=== PATIENT | female | born 1960 | race Caucasian/White ===

== ENCOUNTER 2017-11-20 21:46 | Inpatient (IN) | payer MEDICARE ==
[2017-11-20] MEDS ORDERED: Morphine 4 MG/ML Carpuject ONE (22:11)
--- NOTE | 2017-11-20 22:31 | RAD ---
CHEST ONE VIEW 11/20/17 HISTORY: Trauma. COMPARISON: None. FINDINGS: Thoracostomy tube is in place. No pneumothorax. Multiple right sided rib fractures. There is air spac e opacity in the left upper lobe. IMPRESSION: 1. Right sided thoracostomy tube without pneumothorax. 2. Left upper lobe air space opacity. 3. Multiple right sided rib fractures. Although there are no comparisons available for review, this patient likely has comparisons that are not showing up in her jacket. POS: [facility]
--- NOTE | 2017-11-20 22:40 | PDOC.GSCN ---
Surgery Consult: HPI - Consult details Date: 11/20/17 Time: 15:15 Reason for consult: chest tube History of present illness: The patient presents after fall. She has multiple right sided rib fx's and right pneumothorax. She had chest tube placed in [place]. Surgery Consult: Exam - Physical Exam General: no distress Eye: PERRL Respiratory: other (breath sounds present bilateral, chest tube in place without air leak right chest) Abdomen: non tender, soft Surgery Consult: Meds - Allergies Allergies/Adverse Reactions: Allergies Allergy/AdvReac Type Severity Reaction Status Date / Time No Known Allergies Allergy Verified 11/21/17 00:20 Surgery Consult: Results - Labs Result Diagrams: 12/02/17 04:33 12/02/17 04:33 - Radiology Interpretation Chest x-ray Status: image reviewed by me (no residual ptx, CT in good position) Surgery Consult: A/P - Problem (1) Pneumothorax Current Visit: Yes Code(s): J93.9 - PNEUMOTHORAX, UNSPECIFIED Status: Acute Assessment and Plan: CT in place, admit to CCU, IMCU. Pain control. See Lamberto Rivera H&P for details. (2) Lung cancer Current Visit: Yes Code(s): C34.90 - MALIGNANT NEOPLASM OF UNSP PART OF UNSP BRONCHUS OR LUNG Status: Acute
[2017-11-20] MEDS ORDERED: Ketorolac Tromethamine 30 MG/ML VIAL ONE (23:01)
[2017-11-20] MEDS ORDERED: Acetaminophen 500 MG TAB PO SCH (23:59)
[2017-11-20] MEDS ORDERED: traMADol HCl 50 MG TAB PO SCH (23:59)
[2017-11-21] MEDS ORDERED: Dextrose 50% Abboject 50 ML SYRINGE SLOW IVP PRN ×2 (00:02)
[2017-11-21] MEDS ORDERED: hydrALAZINE 20 MG/ML VIAL SLOW IVP PRN (00:02)
[2017-11-21] MEDS ORDERED: Ondansetron HCl/PF 4 MG/2 ML Vial IVP PRN (00:02)
[2017-11-21] MEDS ORDERED: Promethazine HCl 25 MG/ML VIAL IM PRN (00:02)
[2017-11-21] MEDS ORDERED: Dextrose 5% in Water 1,000 ML IV PRN (00:02)
[2017-11-21] MEDS: Ketorolac Tromethamine 30 MG/ML VIAL IVP SCH ×5 (00:36→23:21)
[2017-11-21] MEDS ORDERED: traMADol HCl 50 MG TAB PO SCH (00:45)
[2017-11-21] MEDS ORDERED: Acetaminophen 500 MG TAB PO SCH (00:45)
[2017-11-21] MEDS: Piperacillin/Tazobactam 3.375 GM in Sodium Chloride 0.9% 100 ML IVPB SCH ×4 (01:33→23:09)
[2017-11-21] MEDS: Morphine 4 MG/ML VIAL SLOW IVP PRN ×2 (03:50→08:07)
[2017-11-21 04:08] LABS: #Eosinphils 0.1 thou/uL (0.0-0.7); #Lymphocytes 0.8 thou/uL (1.20-3.40); #Monocytes 1.1 thou/uL (0.11-0.59); #Neutrophils 13.3 thou/uL (1.40-6.50); %Basophils 0.1 % (0.0-1.0); %Eosinophils 0.5 % (0.0-10.0); %Lymphocytes 5.5 % (21.0-51.0); %Monocytes 7.1 % (0.0-10.0); %Neutrophils 86.8 % (42.0-75.0); Mean Corpuscular HGB CONC 31.4 g/dL (32.0-36.0); Mean Corpuscular Hemoglobin 28.7 pg (27.0-31.0); Mean Corpuscular Volume 91.4 fl (81.0-99.0); Mean Platelet Volume 5.8 fL (7.4-10.4); Platelet Count 567 thou/uL (130-400); RBC Distribution Width 15.1 % (11.5-14.5); Red Blood Cell (RBC) Count 3.13 mill/uL (4.20-5.40); White Blood Cell (WBC) Count 15.3 thou/uL (4.8-10.8)
[2017-11-21 04:27] LABS: Anion Gap 15 mmol/L (10-20); BUN (Urea Nitrogen) 11 mg/dL (9.8-20.1); Calc. Creatinine Clearance 119 mL/min (70-130); Calcium 9.3 mg/dL (7.8-10.44); Carbon Dioxide 26 mmol/L (22-29); Chloride 100 mmol/L (98-107); Estimated GFR-MDRD Greater than 90; Glucose 152 mg/dL (70-105); Magnesium 1.5 mg/dL (1.6-2.6); Phosphorus 3.8 mg/dL (2.3-4.7); Potassium 3.8 mmol/L (3.5-5.1); Sodium 137 mmol/L (136-145)
[2017-11-21] MEDS ORDERED: Potassium Chloride 40 MEQ in Premix Bag 1 BAG IVPB SCH (04:30)
[2017-11-21] MEDS ORDERED: Potassium Chloride 20 MEQ in Sodium Chloride 0.9% 250 ML 250 ML IVPB SCH (05:00)
[2017-11-21] MEDS ORDERED: Magnesium Sulfate 4 GM in Sodium Chloride 0.9% 250 ML 250 ML IVPB SCH (05:00)
[2017-11-21] MEDS: Acetaminophen 500 MG TAB PO SCH ×4 (05:10→23:22)
[2017-11-21] MEDS: traMADol HCl 50 MG TAB PO SCH ×4 (05:10→23:22)
[2017-11-21] MEDS: HumaLOG 300 UNITS/3 ML VIAL SC PRN ×3 (06:17→17:40)
[2017-11-21] MEDS: Sucralfate 1 GM TAB PO SCH ×4 (07:30→23:10)
--- NOTE | 2017-11-21 08:03 | HP ---
Lamberto Rivera PA-C, dictating for Kelvin Sibley M.D. DATE OF ADMISSION: 11/20/2017 ATTENDING PHYSICIAN: Dr. Sibley. CHIEF COMPLAINT: Transferred from [place] for evaluation, for multiple rib fractures. HISTORY OF PRESENT ILLNESS: This is a 57-year-old female who presents to the ED via transfer from [facility] status post fall with injuries to her right side. Per her daughter, patient has fa llen about 3 times this week and had not fallen until her physician placed the patient on a blood pre ssure medication, metoprolol. Patient agrees with that statement as well. The fallen has been start ed since starting this medication. This fall in particular, she got up and then had stumbled and the n fell directly onto her right side causing a direct pain and mild shortness of breath. The patient does receive radiation and chemo for brain and lung cancer. She is currently being treated [facility]. Patient at this time just complains of pain on the right side of the ribs and no other p ain anywhere else at this time. PAST MEDICAL HISTORY: Includes hypertension, she has had heart attack in the past, lung cancer, radha gnant neoplasm of the brain, radiation therapy. She is on home O2, surgical histories includes bladd er suspension, and cholecystectomy. ALLERGIES: No known drug allergies. Obviously she does have some sensitivity to metoprolol. CURRENT MEDICATIONS: Aspirin, atorvastatin, bupropion, dexamethasone, furosemide, glimepiride, Lantu s, Novolin, Combivent, Imdur, Lamictal, Keppra, lisinopril, metformin, metoprolol, Protonix and Caraf ate. SOCIAL HISTORY: No tobacco, alcohol, or drug use. PHYSICAL EXAMINATION: VITAL SIGNS: Blood pressure 173/74, heart rate 94, respiratory 26, temperature 98.5, pain 8/10, 99% on nonrebreather. At this time, she is on 4 liters of nasal cannula, satting at 92%. HEENT: Head is atraumatic, normocephalic. GENERAL: She is in no apparent distress at this time. Conversing in full sentences. NECK: No JVD, no masses. No cervical spine tenderness. LUNGS: She has chest tenderness to the right side with a chest tube in place. Lung sounds are clear on the right. Somewhat progress on the left. CARDIOVASCULAR: S1, S2, regular rate and rhythm. ABDOMEN: Soft, nontender, nondistended. Pelvis is intact. BACK: Unremarkable upper and lower extremities. Ne edema. Positive pulses bilaterally and moving w ithout difficulty. NEUROLOGIC: GCS of 15. SKIN: Warm and dry. LABORATORY DATA: Sodium 131, potassium 4.1, chloride 197, bicarbonate 24, BUN 11, creatinine 0.5, gl ucose 198. CBC: White count 17.2, hemoglobin 9.3, hematocrit 28.3, platelet count 596. PT 16.3, INR 1.5. RADIOLOGY: CT of the head, chest was done at [place], which showed multiple rib fractures on CT o f chest with moderate pneumothorax. CT of the head showed redemonstration of malignant tumor and no intracranial hemorrhage. ASSESSMENT AND PLAN: 1. Status post fall. Multiple rib fractures 3 through 8 on the right pneumothorax. 2. Current treatment of lung and brain cancer. Plan will be admitted to CCU for overnight observation. Continue with respiratory therapy. Home med ications has been also be restarted, reconcile those, started on clear liquid diet and advance as julienne erated. Continue chest tube management on suction. Chest x-ray in the morning. We will institute r ib fracture protocol. We also discussed possibly getting oncology on board if her stay is longer ivis t runs into her concurrent radiation treatment next week. We will initiate DVT and gastrointestinal prophylaxis when appropriate. The patient has been seen by Dr. Sibley at bedside and agrees with th jaja above plan.
--- NOTE | 2017-11-21 08:09 | PDOC.GSPN ---
Surgery Progress Note: Subj - Subjective Narrative: Pain better this am, no dysnea Surgery Progress Note: Obj - Vital signs Vital signs: Vital Signs - Most Recent Temp Pulse Resp BP Pulse Ox 98.8 F 84 21 H 98 11/21/17 03:00 11/21/17 07:12 11/21/17 07:12 11/21/17 07:16 - Physical Exam General: no distress Respiratory: clear to auscultation Abdomen: non tender Surgery Progress Note: Results - Labs Result Diagrams: 11/21/17 03:54 11/21/17 03:54 Lab results: Laboratory Results WBC 15.3 thou/uL (4.8-10.8) H 11/21/17 03:54 RBC 3.13 mill/uL (4.20-5.40) L 11/21/17 03:54 Hgb 9.0 g/dL (12.0-16.0) L 11/21/17 03:54 Hct 28.6 % (36.0-47.0) L 11/21/17 03:54 MCV 91.4 fl (81.0-99.0) 11/21/17 03:54 MCH 28.7 pg (27.0-31.0) 11/21/17 03:54 MCHC 31.4 g/dL (32.0-36.0) L 11/21/17 03:54 RDW 15.1 % (11.5-14.5) H 11/21/17 03:54 Plt Count 567 thou/uL (130-400) H 11/21/17 03:54 MPV 5.8 fL (7.4-10.4) L 11/21/17 03:54 Neutrophils % 86.8 % (42.0-75.0) H 11/21/17 03:54 Lymphocytes % 5.5 % (21.0-51.0) L 11/21/17 03:54 Monocytes % 7.1 % (0.0-10.0) 11/21/17 03:54 Eosinophils % 0.5 % (0.0-10.0) 11/21/17 03:54 Basophils % 0.1 % (0.0-1.0) 11/21/17 03:54 Neutrophils # 13.3 thou/uL (1.40-6.50) H 11/21/17 03:54 Lymphocytes # 0.8 thou/uL (1.20-3.40) L 11/21/17 03:54 Monocytes # 1.1 thou/uL (0.11-0.59) H 11/21/17 03:54 Eosinophils # 0.1 thou/uL (0.0-0.7) 11/21/17 03:54 Basophils # 0.0 thou/uL (0.0-0.2) 11/21/17 03:54 Sodium 137 mmol/L (136-145) 11/21/17 03:54 Potassium 3.8 mmol/L (3.5-5.1) 11/21/17 03:54 Chloride 100 mmol/L (98-107) 11/21/17 03:54 Carbon Dioxide 26 mmol/L (22-29) 11/21/17 03:54 Anion Gap 15 mmol/L (10-20) 11/21/17 03:54 BUN 11 mg/dL (9.8-20.1) 11/21/17 03:54 Creatinine 0.62 mg/dL (0.6-1.1) 11/21/17 03:54 Estimated GFR (MDRD) Greater than 90 11/21/17 03:54 Glucose 152 mg/dL (70-105) H 11/21/17 03:54 POC Glucose 158 mg/dL (70-110) H 11/21/17 06:17 Calcium 9.3 mg/dL (7.8-10.44) 11/21/17 03:54 Phosphorus 3.8 mg/dL (2.3-4.7) 11/21/17 03:54 Magnesium 1.5 mg/dL (1.6-2.6) L 11/21/17 03:54 - Radiology Interpretation Chest x-ray Status: image reviewed by me (no residual ptx, CT in good position) Surgery Progress Note: A/P - Problem (1) Pneumothorax Current Visit: Yes Code(s): J93.9 - PNEUMOTHORAX, UNSPECIFIED Status: Acute Assessment and Plan: Ct to water seal per Dr. Cheema, continue pain control (2) Lung cancer Current Visit: Yes Code(s): C34.90 - MALIGNANT NEOPLASM OF UNSP PART OF UNSP BRONCHUS OR LUNG Status: Acute
[2017-11-21] MEDS: Dexamethasone 4 MG TAB PO SCH (08:11)
--- NOTE | 2017-11-21 08:24 | RAD ---
UPRIGHT PORTABLE CHEST 1 VIEW: Date: HISTORY: 57-year-old female with chest tube, follow-up, multiple right rib fractures secondary to trauma. FINDINGS: There are numerous minimally displaced right rib fractures. Right chest tube in place without pneumot horax. There is extensive interstitial and alveolar abnormal opacity in the left upper lobe, evidence for pneumonia, with some nodularity in the hilar regions raising concern for possibility of coexiste nt mass or adenopathy. IMPRESSION: No significant residual right-sided pneumothorax. Numerous displaced right rib fractures. Extensive a bnormal opacity in the left upper chest, which is stable, with some patchy parenchymal changes in the infrahilar regions, as well as some nodularity in the hilar regions as well. No significant change f rom 11/20/17. Continue short-term follow-up for clearing or stability. POS: [facility]
[2017-11-21] MEDS: levETIRAcetam 500 MG TAB PO SCH ×2 (08:48→23:10)
[2017-11-21] MEDS: Gabapentin 100 MG CAP PO SCH ×3 (08:48→23:11)
[2017-11-21] MEDS: buPROPion HCl 100 MG TAB PO SCH ×2 (08:49→23:10)
[2017-11-21] MEDS: lamoTRIgine 100 MG TAB PO SCH (08:49)
[2017-11-21] MEDS ORDERED: FLU VACC QS2017-18 36 mo. & older 0.5 ML SYRINGE IM ONE (09:00)
[2017-11-21] MEDS: Insulin Detemir 100 UNITS/ML 45 UNITS in Admixture Fee 1 EACH SC SCH (23:08)
[2017-11-21] MEDS: Atorvastatin Calcium 40 MG TAB PO SCH (23:10)
[2017-11-22] MEDS: Piperacillin/Tazobactam 3.375 GM in Sodium Chloride 0.9% 100 ML IVPB SCH ×4 (01:14→21:19)
[2017-11-22] MEDS: Morphine 4 MG/ML Carpuject SLOW IVP PRN ×2 (04:56→22:59)
[2017-11-22] MEDS: traMADol HCl 50 MG TAB PO SCH ×4 (04:58→22:58)
[2017-11-22] MEDS: Acetaminophen 500 MG TAB PO SCH ×4 (04:58→22:58)
[2017-11-22] MEDS: Ketorolac Tromethamine 30 MG/ML VIAL IVP SCH ×4 (04:59→22:57)
[2017-11-22] MEDS ORDERED: HYDROcodone/Acetaminophen 10/325 mg Tablet PO SCH (07:00)
[2017-11-22] MEDS: Sucralfate 1 GM TAB PO SCH ×4 (07:34→21:21)
[2017-11-22] MEDS: Dexamethasone 4 MG TAB PO SCH (07:35)
[2017-11-22] MEDS: buPROPion HCl 100 MG TAB PO SCH ×2 (09:10→21:21)
[2017-11-22] MEDS: lamoTRIgine 100 MG TAB PO SCH (09:11)
[2017-11-22] MEDS: Docusate 100 MG CAP PO SCH (09:11)
[2017-11-22] MEDS: Senokot 8.6 MG TAB PO SCH (09:11)
[2017-11-22] MEDS: Gabapentin 100 MG CAP PO SCH ×3 (09:11→21:21)
[2017-11-22] MEDS: levETIRAcetam 500 MG TAB PO SCH ×2 (09:11→21:21)
--- NOTE | 2017-11-22 10:32 | RAD ---
CHEST 1 VIEW: Date: 11/22/17 HISTORY: 57-year-old female with follow-up chest tube and flail chest. FINDINGS: Again noted are numerous displaced right rib fractures. Right chest tube in place without significant pneumothorax. Extensive alveolar and reticulonodular opacity in the left upper lobe with some associ ated volume loss, as well as some nodularity in the left hilum and right paratracheal region, and ivet e minimal increased markings in the infrahilar regions. Overall appearance is stable. IMPRESSION: Stable appearance of the chest. No evidence for right-sided acute pneumothorax. POS: [facility]
[2017-11-22] MEDS ORDERED: Ketorolac Tromethamine 60 MG/2 ML VIAL ONE (11:37)
[2017-11-22] MEDS ORDERED: Ketorolac Tromethamine 30 MG/ML VIAL IVP SCH (11:45)
[2017-11-22] MEDS: HumaLOG 300 UNITS/3 ML VIAL SC PRN ×3 (11:52→21:45)
--- NOTE | 2017-11-22 19:29 | PRG ---
DATE OF SERVICE: 11/22/2017 ATTENDING PHYSICIAN: Eddie Cheema, DO This is Sharron Palafox, nurse practitioner, dictating a daily progress note for Dr. Eddie Cheema. SUBJECTIVE: The patient is a 57-year-old female who was admitted one day ago after transfer from an outside facility status post fall with injuries to her right side. Multiple right-sided rib fractures were identified and a tube thoracostomy was placed. Chest tube was placed to water seal one day ago. There has been no residual pneumothorax. She was transferred out of the IMC unit and up to the surgical floor yesterday evening. She has remained stable. She states the pain is only partially controlled with current pain regimen. OBJECTIVE: VITAL SIGNS: Temperature 98 degrees Fahrenheit, pulse 93, respirations 16, O2 sat 92% on 2 liters, blood pressure 126/76. CONSTITUTIONAL: A 57-year-old female lying in bed, some obvious pain to the right rib area, in no acute distress. HEENT: Atraumatic, normocephalic. PULMONARY: Bilateral breath sounds clear. Chest tube in place to water seal right lateral. No air leak noted. CARDIOVASCULAR: Regular rate and rhythm. Heart sounds normal. ABDOMEN: Soft, nontender, nondistended. NEUROLOGIC: GCS of 15. Awake, alert, oriented x3. EXTREMITIES: Moves all extremities well. Cap refill brisk. Neurovascularly intact. ASSESSMENT: 1. Status post ground-level fall. 2. Multiple rib fractures 3 through 8 on the right side. 3. Right pneumothorax, resolved. 4. Status post tube thoracostomy placement. 5. Currently undergoing treatment for metastatic lung cancer. PLAN: 1. Adjust oral pain medication. We will add Toradol and continue hydrocodone. 2. Continue daily chest x-rays. 3. Encourage pulmonary toilet and incentive spirometry. 4. Continue Zosyn which was started prior to arrival for treatment of pneumonia. 5. Protonix for PUD prophylaxis. 6. SCDs for DVT prophylaxis. The patient was seen and examined with Dr. Cheema who agrees with the assessment and plan. MTDD
[2017-11-22] MEDS: Atorvastatin Calcium 40 MG TAB PO SCH (21:21)
[2017-11-22] MEDS: Insulin Detemir 100 UNITS/ML 45 UNITS in Admixture Fee 1 EACH SC SCH (21:22)
[2017-11-22] MEDS: Cyclobenzaprine 10 MG TAB PO PRN (23:06)
[2017-11-23] MEDS: Piperacillin/Tazobactam 3.375 GM in Sodium Chloride 0.9% 100 ML IVPB SCH ×4 (02:25→21:04)
[2017-11-23] MEDS: Morphine 4 MG/ML Carpuject SLOW IVP PRN (03:37)
[2017-11-23] MEDS: Acetaminophen 500 MG TAB PO SCH ×4 (05:40→23:27)
[2017-11-23] MEDS: traMADol HCl 50 MG TAB PO SCH ×4 (05:40→23:25)
[2017-11-23] MEDS: Ketorolac Tromethamine 30 MG/ML VIAL IVP SCH ×4 (05:41→23:28)
[2017-11-23] MEDS ORDERED: Glimepiride 4 MG TAB PO SCH (07:30)
--- NOTE | 2017-11-23 07:52 | RAD ---
CHEST 1 VIEW: HISTORY: Chest tube. Followup. COMPARISON: 11/22/17. FINDINGS: Cardiac silhouette is magnified by projection. Mass-like infiltrate at the left upper lobe is stable . Right thoracostomy tube remains in good radiographic position. Right rib fractures are again demo nstrated. No significant residual pneumothorax. Mediastinum remains midline. IMPRESSION: Stable posttraumatic appearance of the chest. POS: [facility]
[2017-11-23] MEDS: Docusate 100 MG CAP PO SCH (09:27)
[2017-11-23] MEDS: buPROPion HCl 100 MG TAB PO SCH ×2 (09:27→21:05)
[2017-11-23] MEDS: Gabapentin 100 MG CAP PO SCH ×3 (09:27→21:04)
[2017-11-23] MEDS: metFORMIN XR 500 MG TAB PO SCH ×2 (09:27→16:55)
[2017-11-23] MEDS: Sucralfate 1 GM TAB PO SCH ×4 (09:27→21:04)
[2017-11-23] MEDS: Dexamethasone 4 MG TAB PO SCH (09:27)
[2017-11-23] MEDS: Senokot 8.6 MG TAB PO SCH (09:28)
[2017-11-23] MEDS: Metoprolol Tartrate 25 MG TAB PO SCH ×2 (09:28→21:03)
[2017-11-23] MEDS: lamoTRIgine 100 MG TAB PO SCH (09:28)
[2017-11-23] MEDS: Cyclobenzaprine 10 MG TAB PO PRN ×2 (09:28→20:42)
[2017-11-23] MEDS: levETIRAcetam 500 MG TAB PO SCH ×2 (09:28→21:04)
[2017-11-23] MEDS: HumaLOG 300 UNITS/3 ML VIAL SC PRN ×3 (11:04→22:05)
--- NOTE | 2017-11-23 12:49 | PRG ---
DATE OF SERVICE: 11/23/2017 SUBJECTIVE: I am seeing Ms. Wharton today in the presence of trauma team and patient's nurse. The p atient reports adequate pain control. She denies any dyspnea, syncope, or abdominal pain. Chest tub e has been on water seal since yesterday. Chest x-ray today reveals no residual pneumothorax. OBJECTIVE: VITAL SIGNS: Today, includes blood pressure 117/72, pulse 95, respiratory rate is 18, temperature is 97.9 degrees Fahrenheit, oxygen saturation is 96% on 3 liters by nasal cannula oxygen. HEENT EXAMINATION: Reveals normocephalic and atraumatic. Pupils are equal, round, and reactive to l ight and accommodation. HEART: Reveals regular rate and rhythm, no murmurs or gallops auscultated. LUNGS: Reveal bilateral scattered rhonchi. Breathing regular and unlabored. ABDOMEN: Soft, nontender, and nondistended. Bowel sounds in all 4 quadrants appear normoactive. No te that the chest tube, which is on water seal reveals no air leaks. IMPRESSION: 1. Status post fall with right blunt chest trauma. 2. Resolved right pneumothorax. PLAN: Chest tube was removed without incident. Portable chest x-ray will be obtained tomorrow to ru le out any recurrent pneumothorax. Patient will be encouraged to ambulate and participate in activit ies per physical and occupational therapy. Anticipate discharge to rehab soon.
[2017-11-23] MEDS: Atorvastatin Calcium 40 MG TAB PO SCH (21:04)
[2017-11-23] MEDS ORDERED: Amiodarone In Dextrose 200 ML IVPB SCH (21:45)
[2017-11-23] MEDS ORDERED: Amiodarone HCl 150 MG in Dextrose 5% in Water 100 ML IVPB SCH (22:00)
[2017-11-23] MEDS ORDERED: Amiodarone HCl 450 MG, Admixture Fee 1 EACH in Dextrose 5% in Water 250 ML IVPB SCH (22:00)
[2017-11-23] MEDS: Insulin Detemir 100 UNITS/ML 20 UNITS in Pre-Filled Syringe 1 EACH SC SCH (22:04)
[2017-11-23 22:12] LABS: #Eosinphils 0.1 thou/uL (0.0-0.7); #Lymphocytes 0.7 thou/uL (1.20-3.40); #Monocytes 0.8 thou/uL (0.11-0.59); #Neutrophils 16.3 thou/uL (1.40-6.50); %Eosinophils 0.3 % (0.0-10.0); %Lymphocytes 3.8 % (21.0-51.0); %Monocytes 4.3 % (0.0-10.0); %Neutrophils 91.5 % (42.0-75.0); Mean Corpuscular HGB CONC 30.4 g/dL (32.0-36.0); Mean Corpuscular Hemoglobin 28.2 pg (27.0-31.0); Mean Corpuscular Volume 92.6 fl (81.0-99.0); Mean Platelet Volume 5.7 fL (7.4-10.4); Platelet Count 656 thou/uL (130-400); RBC Distribution Width 15.1 % (11.5-14.5); Red Blood Cell (RBC) Count 3.54 mill/uL (4.20-5.40); White Blood Cell (WBC) Count 17.8 thou/uL (4.8-10.8)
[2017-11-23 22:34] LABS: Anion Gap 14 mmol/L (10-20); BUN (Urea Nitrogen) 13 mg/dL (9.8-20.1); Calc. Creatinine Clearance 125 mL/min (70-130); Calcium 9.4 mg/dL (7.8-10.44); Carbon Dioxide 24 mmol/L (22-29); Chloride 103 mmol/L (98-107); Estimated GFR-MDRD Greater than 90; Glucose 233 mg/dL (70-105); Magnesium 1.5 mg/dL (1.6-2.6); Phosphorus 2.6 mg/dL (2.3-4.7); Potassium 4.6 mmol/L (3.5-5.1); Sodium 136 mmol/L (136-145)
[2017-11-23] MEDS ORDERED: Magnesium Sulfate 4 GM in Sodium Chloride 0.9% 250 ML 250 ML IVPB SCH (23:30)
--- NOTE | 2017-11-24 00:01 | PRG ---
DATE OF SERVICE: 11/23/2017 SUBJECTIVE: This is a 57-year-old female status post fall with multiple rib fractures and pneumothor ax on the right. She does have a history of extensive cancer of the lung, brain, and possible abdome n. Tonight, the patient did develop atrial fibrillation with RVR as noted on EKG and the patient den ied any chest pain. I think shortness of breath normally associated that she does have chronically. No headaches or dizziness at this time. OBJECTIVE: VITAL SIGNS: Heart rate of approximately 130, 115, and as low as 100 with atrial fibrillation RVR no nanci on the EKG. Blood pressure is 123/78, SpO2 was 95%, respiratory rate of approximately 18 and unl abored. Physical exam is unchanged from this a.m. Otherwise, chest dressing was clean, dry, and int act. Thoracostomy tube was removed early tonight. LABORATORY DATA: Stat labs were ordered. CBC: WBCs of 17.8, hemoglobin 10, hematocrit 32.8, platel et count 656. Chemistries showed sodium of 136, potassium 4.6, chloride 103, bicarbonate 24, BUN 13, creatinine 0.59, glucose 233, phosphorous 2.6, calcium 9.4, and a magnesium of 1.5. Chest x-ray was taken as well. No discrete pneumothorax noted by Radiology as well as unchanged appearance of left opacification. ASSESSMENT AND PLAN: The patient at this time will be then transferred to the telemetry unit for car diac monitoring as well as placed on an amiodarone drip per protocol, correct her abnormal electrolyt es, a.m. labs will be drawn as well as a repeat chest x-ray. The patient at this time is in no acute distress. Her pain is being treated adequately. Continue care as per a.m. progress note.
[2017-11-24] MEDS: Piperacillin/Tazobactam 3.375 GM in Sodium Chloride 0.9% 100 ML IVPB SCH ×4 (02:48→21:22)
[2017-11-24 05:24] LABS: #Eosinphils 0.3 thou/uL (0.0-0.7); #Lymphocytes 0.9 thou/uL (1.20-3.40); #Monocytes 0.9 thou/uL (0.11-0.59); #Neutrophils 13.8 thou/uL (1.40-6.50); %Lymphocytes 5.7 % (21.0-51.0); %Monocytes 5.8 % (0.0-10.0); %Neutrophils 86.4 % (42.0-75.0); Hemoglobin 9.4 g/dL (12.0-16.0); Mean Corpuscular HGB CONC 30.6 g/dL (32.0-36.0); Mean Corpuscular Hemoglobin 28.7 pg (27.0-31.0); Mean Corpuscular Volume 93.6 fl (81.0-99.0); Mean Platelet Volume 5.8 fL (7.4-10.4); Platelet Count 637 thou/uL (130-400); RBC Distribution Width 14.9 % (11.5-14.5); Red Blood Cell (RBC) Count 3.28 mill/uL (4.20-5.40); White Blood Cell (WBC) Count 15.9 thou/uL (4.8-10.8)
[2017-11-24] MEDS: traMADol HCl 50 MG TAB PO SCH ×4 (05:29→23:55)
[2017-11-24] MEDS: Acetaminophen 500 MG TAB PO SCH ×2 (05:29→11:01)
[2017-11-24] MEDS: Ketorolac Tromethamine 30 MG/ML VIAL IVP SCH ×3 (05:30→21:24)
[2017-11-24 05:44] LABS: Anion Gap 13 mmol/L (10-20); BUN (Urea Nitrogen) 14 mg/dL (9.8-20.1); Calc. Creatinine Clearance 153 mL/min (70-130); Calcium 8.9 mg/dL (7.8-10.44); Carbon Dioxide 25 mmol/L (22-29); Chloride 106 mmol/L (98-107); Estimated GFR-MDRD Greater than 90; Glucose 100 mg/dL (70-105); Magnesium 2.5 mg/dL (1.6-2.6); Phosphorus 2.7 mg/dL (2.3-4.7); Potassium 4.5 mmol/L (3.5-5.1); Sodium 139 mmol/L (136-145)
--- NOTE | 2017-11-24 07:28 | RAD ---
PORTABLE AP CHEST X-RAY: 11/23/2017 HISTORY: New-onset atrial fibrillation. COMPARISON: 11/23/2017 at 0619 hours. FINDINGS: The right-sided thoracostomy tube has been removed. No obvious pneumothorax is appreciated. Multipl e right-sided rib fractures are again noted. The mass-like parenchymal opacity in the left upper scar g zone is again seen and unchanged. There has been no other interval change. IMPRESSION: 1. Interval removal of the right-sided thoracostomy tube without evidence of pneumothorax. 2. Multiple right-sided rib fractures. 3. Stable mass-like opacity within the left mid and upper lung zone. POS: [facility]
[2017-11-24] MEDS: Sucralfate 1 GM TAB PO SCH ×2 (08:00→16:42)
--- NOTE | 2017-11-24 08:52 | RAD ---
CHEST ONE VIEW: History: Dyspnea. Chest pain. Pneumothorax. Comparison: 11-23-17 FINDINGS: Cardiac silhouette is magnified and enlarged. Dense infiltrate within the left upper lobe is stable. Pulmonary vasculature remains enlarged. Small right pneumothorax is now present with the apical pleura just below the third rib. Multiple rig ht rib fractures are again demonstrated. security monitor leads overlie the chest. IMPRESSION: 1. Small recurrent right apical pneumothorax. 2. Otherwise stable post-traumatic appearance of the chest. POS: [facility]
[2017-11-24] MEDS: Dexamethasone 4 MG TAB PO SCH (08:55)
[2017-11-24] MEDS: lamoTRIgine 100 MG TAB PO SCH (08:55)
[2017-11-24] MEDS: metFORMIN XR 500 MG TAB PO SCH ×2 (08:56→18:22)
[2017-11-24] MEDS: Gabapentin 100 MG CAP PO SCH ×3 (08:56→21:25)
[2017-11-24] MEDS: levETIRAcetam 500 MG TAB PO SCH ×2 (08:56→21:25)
[2017-11-24] MEDS: Metoprolol Tartrate 25 MG TAB PO SCH ×2 (08:56→21:25)
[2017-11-24] MEDS ORDERED: Lidocaine 1% (PF) 30 ML VIAL SC SCH (09:00)
[2017-11-24] MEDS: buPROPion HCl 100 MG TAB PO SCH ×2 (09:03→21:25)
--- NOTE | 2017-11-24 12:27 | PQF ---
CLINICAL DOCUMENTATION IMPROVEMENT CLARIFICATION FORM: ICD-10 Updated PLEASE DO AN ADDENDUM TO THE PROGRESS NOTE WITH ANY DOCUMENTATION UPDATES OR ADDITIONS AND CARRY THROUGH TO DC SUMMARY. THANK YOU. DATE: 11/24/17 ATTN: Dr. Cheema 11/26/16 Please exercise your independent, professional judgment in responding to the clarification form. Clinical indicators are provided on the bottom of this form for your review Please check appropriate box(s): [ ] Acute Respiratory Failure: [ ] with Hypoxia [ ] with Hypercapnia [ ] Acute On Chronic Respiratory Failure: [ x ] with Hypoxia [ ] with Hypercapnia [ ] Acute Respiratory Failure due to: (etiology) [ ] Chronic Respiratory Failure only [ ] with Hypoxia [ ] with Hypercapnia [ x ] Other diagnosis ___COPD [ ] Unable to determine In addition, please specify: Present on Admission (POA): [ x ] Yes [ ] No [ ] Unable to determine For continuity of documentation, please document condition throughout progress notes and discharge summary. Thank You. CLINICAL INDICATORS - SIGNS / SYMPTOMS / LABS ED RECORD: BP 115/83, PULSE 94, RESP 30, O2 SAT 96 ON NON REBREATHER RESP 26, O2 SAT 91 ON 4L OXYGEN H&P: SHE IS ON 4 L NC, SATTING @ 92% PN 11/22: O2 SAT 92% ON 2 L RISKS: H&P: SHE IS ON HOME O2. S/P FALL. MULTIPLE RIB FRACTURES 3 THROUGH 8 ON THE R. PNEUMOTHORAX. CURRENT TREATMENT OF LUNG & BRAIN CANCER. TREATMENT: CPOE 11/20: RESP: O2 TO KEEP SATS 92%, PRN. GEN. SURGERY CONSULT: SHE HAD CHEST TUBE PLACED IN [place]. Thank you, Griselda (This form is maintained as a part of the permanent medical record) 2015 [employer] All Rights Reserved Griselda Murrieta RN, BSN [email or web address] Office: [phone] [facility]
[2017-11-24] MEDS: Polyethylene Glycol 3350 17 GM Packet PO SCH (13:07)
[2017-11-24] MEDS: Senokot 8.6 MG TAB PO SCH (13:08)
[2017-11-24] MEDS: Docusate 100 MG CAP PO SCH (13:08)
[2017-11-24] MEDS: Insulin Detemir 100 UNITS/ML 25 UNITS in Pre-Filled Syringe 1 EACH SC SCH (13:08)
[2017-11-24] MEDS: HumaLOG 300 UNITS/3 ML VIAL SC PRN ×2 (13:10→18:20)
--- NOTE | 2017-11-24 13:57 | PRG ---
DATE OF SERVICE: 11/24/2017 HISTORY OF PRESENT ILLNESS: Ms. Wharton is a 57-year-old woman status post fall sustaining a right b sandra chest trauma including right pneumothorax. This was previously treated with thoracostomy tube, which was removed yesterday. The patient had developed recurrent moderate size right-sided pneumotho rax today. She went into atrial fibrillation with rapid ventricular response overnight which has sin ce resolved. Currently, she denies any significant dyspnea or chest pain. OBJECTIVE: VITAL SIGNS: Includes blood pressure 132/78, pulse 79, respiratory rate 20, temperature is 97.8 degr ees Fahrenheit, and oxygen saturation is 96% on 3 liters by nasal cannula oxygen. HEENT: Examination reveals normocephalic and atraumatic. HEART: Reveals regular rate and rhythm. No murmurs or gallops auscultated. LUNGS: Reveals scattered rhonchi. Breathing regular and unlabored. There are slightly diminished b reath sounds in the right upper lobe on auscultation. ABDOMEN: Soft, nontender and nondistended. Bowel sounds in all four quadrants appear normoactive. EXTREMITIES: Reveals 2+ radial and pedal pulses bilaterally. No ankle edema is present. NEUROLOGIC: Examination today reveals no focal deficits present. LABORATORY DATA AND IMAGING DATA: Laboratory findings includes CBC with stable indices including whi te blood cell count 15,900, hemoglobin and hematocrit 9.4 and 30.8, platelet count is stable at 637,0 00. Metabolic profile: Sodium 139, potassium is 4.5, chloride is 106, bicarbonate 25, BUN 14, creat inine 0.53, glucose is 100, magnesium 2.5, and phosphorus is 2.7. I have personally reviewed the [facility] x-ray which was obtained today revealing a moderate size right recurrent pneumothorax. IMPRESSION: 1. Status post right blunt chest trauma. 2. Recurrent right pneumothorax. PLAN: Placement of 28 [place]oth[place] thoracostomy tube. Both findings and plan discussed with the patient who indicates understanding of information given. She has granted consent for the placement of chest tube.
[2017-11-24] MEDS ORDERED: Ketorolac Tromethamine 30 MG/ML VIAL IVP SCH (15:30)
[2017-11-24] MEDS: HYDROcodone/Acetaminophen 10/325 mg Tablet PO PRN ×2 (15:59→21:21)
[2017-11-24] MEDS ORDERED: Clopidogrel Bisulfate 75 MG TAB ONE (16:29)
--- NOTE | 2017-11-24 16:59 | OP ---
DATE OF PROCEDURE: 11/24/2017 PREOPERATIVE DIAGNOSIS: Right pneumothorax. POSTOPERATIVE DIAGNOSIS: Right pneumothorax. PROCEDURE PERFORMED: Placement of 28 Austrian right thoracostomy tube. INDICATIONS FOR PROCEDURE: A 57-year-old woman who suffered right pneumothorax following a fall with blunt chest trauma. Chest tube was placed which was subsequently removed yesterday. The patient saleh s developed recurrent right-sided pneumothorax overnight requiring treatment. She went into atrial f ibrillation with rapid ventricular response. DESCRIPTION OF PROCEDURE: Informed consent obtained from the patient who was placed in a supine posi tion. Right chest wall is sterilely prepped and draped in the usual fashion. The skin at the sixth intercostal space right anterior axillary line was anesthetized with 1% lidocaine. A 1 cm transverse incision is made using 15 scalpel. The right pleural cavity was entered through this incision using a hemostat bluntly. Digital finger exploration reveals no pleural adhesions. A 28 Austrian thoracost leana tube was then introduced through this incision and advanced superiorly and posteriorly in the ple ural cavity. The tube was then connected to pleurovac which was placed to suction. The chest tube i s secured to the anterior chest wall using 0-silk suture. Sterile dressings were applied. The patie nt tolerated this procedure without any apparent complication and remains hemodynamically stable foll owing completion of the procedure.
[2017-11-24] MEDS: Sucralfate 1 GM/10 ML UDCUP PO SCH ×2 (18:22→21:25)
[2017-11-24] MEDS: Insulin Detemir 100 UNITS/ML 20 UNITS in Pre-Filled Syringe 1 EACH SC SCH (21:23)
[2017-11-24] MEDS: guaiFENesin ER 600 MG TAB PO SCH (21:25)
[2017-11-24] MEDS: Atorvastatin Calcium 40 MG TAB PO SCH (21:25)
--- NOTE | 2017-11-24 23:48 | PRG ---
DATE OF SERVICE: 11/24/2017 SUBJECTIVE: Ms. Wharton is a 57-year-old woman status post fall with right-sided rib fracture, pneum othorax. Patient had her chest tube removed yesterday; however, reaccumulated and a chest tube was r eplaced earlier today. Upon my evaluation, the patient appears to be in moderate pain; however, she states that her pain medications are due and they do control her pain adequately. Patient vocalized no other complaints. OBJECTIVE: VITAL SIGNS: Reviewed and stable. Patient's O2 saturations 95% on 2-3 liters nasal cannula. GENERAL: She is resting in bed in no acute distress. She is afebrile. RESPIRATORY: Breathing is nonlabored. Her chest tube is on suction at this time. Incentive spirome try 750-1000 mL, which patient states is unchanged from earlier. ASSESSMENT AND PLAN: As documented in the daily progress note. Continue care as ordered, a.m. chest x-ray. Continue to monitor.
[2017-11-25] MEDS: Piperacillin/Tazobactam 3.375 GM in Sodium Chloride 0.9% 100 ML IVPB SCH ×4 (01:45→19:54)
[2017-11-25] MEDS: HYDROcodone/Acetaminophen 10/325 mg Tablet PO PRN ×3 (01:46→19:54)
[2017-11-25] MEDS: Ketorolac Tromethamine 30 MG/ML VIAL IVP SCH ×4 (05:59→21:54)
[2017-11-25] MEDS: traMADol HCl 50 MG TAB PO SCH ×3 (06:00→18:09)
[2017-11-25] MEDS: Sucralfate 1 GM/10 ML UDCUP PO SCH ×4 (08:27→21:58)
[2017-11-25] MEDS: Metoprolol Tartrate 25 MG TAB PO SCH ×2 (08:28→21:57)
[2017-11-25] MEDS: Dexamethasone 4 MG TAB PO SCH (08:28)
[2017-11-25] MEDS: guaiFENesin ER 600 MG TAB PO SCH ×2 (08:28→21:57)
[2017-11-25] MEDS: Docusate 100 MG CAP PO SCH (08:29)
[2017-11-25] MEDS: Polyethylene Glycol 3350 17 GM Packet PO SCH (08:29)
[2017-11-25] MEDS: levETIRAcetam 500 MG TAB PO SCH ×2 (08:29→21:57)
[2017-11-25] MEDS: Senokot 8.6 MG TAB PO SCH (08:29)
[2017-11-25] MEDS: metFORMIN XR 500 MG TAB PO SCH ×2 (08:29→18:09)
[2017-11-25] MEDS: Gabapentin 100 MG CAP PO SCH ×3 (08:29→21:57)
[2017-11-25] MEDS: Insulin Detemir 100 UNITS/ML 25 UNITS in Pre-Filled Syringe 1 EACH SC SCH (08:30)
[2017-11-25] MEDS: lamoTRIgine 100 MG TAB PO SCH (08:37)
[2017-11-25] MEDS: buPROPion HCl 100 MG TAB PO SCH ×2 (08:37→21:55)
--- NOTE | 2017-11-25 11:12 | RAD ---
SINGLE VIEW OF THE CHEST: Comparison: 11-24-17 History: Chest tube placement for pneumothorax. FINDINGS: Single view of the chest shows interval placement of a right sided chest tube. The pneumothorax is si gnificantly decreased in size with a very small right apical pneumothorax. There is opacity in the le ft upper lobe which may represent an infiltrate or pulmonary contusion. Multiple right sided rib frac tures are again seen. IMPRESSION: 1. Status post chest tube placement with decreased size of right pneumothorax. 2. Left upper lobe infiltrate. POS: [facility]
--- NOTE | 2017-11-25 13:44 | PRG ---
DATE OF SERVICE: 11/25/2017 SUBJECTIVE: The patient is status post ground level fall, which she sustained a right-sided chest tr auma to include a right-sided pneumothorax. The patient had a chest tube placed at an outside facili ty, which after serial exams and radiographs was able to be removed, but subsequent day showed reaccu mulation of the pneumothorax, so yesterday she had her right-sided chest tube replaced. Overnight, s he had no issues. She initially had some pain control issues, which have since resolved. She is julienne erating a diet. She has been able to work with physical and occupational therapy. PHYSICAL EXAMINATION: VITAL SIGNS: Temperature is 98.3, heart rate 80, blood pressure 127/77, oxygen saturation is 93% on 3 liters via nasal cannula. GENERAL: Patient is resting comfortably in bed. She is alert and oriented x3. [place] coma scale i s 15. HEENT: Unremarkable. Trachea is midline. No JVD. CHEST: Has scattered rhonchi bilaterally with the patient's history of cancer and previous lung issu es, this is most likely her baseline. HEART: Regular rate and rhythm. ABDOMEN: Soft, flat, nontender with active bowel sounds. EXTREMITIES: Neurovascularly intact. LABORATORY DATA: There are no laboratories reviewed this morning. Radiographically, the chest tube shows a markedly diminished right-sided pneumothorax and a right-sided chest tube in place. ASSESSMENT AND PLAN: 1. Status post ground level fall. 2. Status post recurrent right-sided pneumothorax with right-sided chest tube placed. Plan will be to continue supportive care, pain control, pulmonary toilet and we will place the chest tube to waterseal today and repeat chest x-ray in the morning. The evaluation examination was done w troy Cheema during rounds this morning.
[2017-11-25] MEDS: Cyclobenzaprine 10 MG TAB PO PRN (21:55)
[2017-11-25] MEDS: Atorvastatin Calcium 40 MG TAB PO SCH (21:57)
[2017-11-25] MEDS: Insulin Detemir 100 UNITS/ML 20 UNITS in Pre-Filled Syringe 1 EACH SC SCH (22:03)
[2017-11-26] MEDS: traMADol HCl 50 MG TAB PO SCH ×4 (00:11→18:12)
--- NOTE | 2017-11-26 00:38 | PRG ---
DATE OF SERVICE: 11/25/2017. SUBJECTIVE: This is a 57-year-old female status post fall with right-sided rib fracture and pneumoth orax that reaccumulated after chest tube removal. Patient's chest x-ray this morning demonstrated al most near resolution of her pneumothorax. Her chest tube is in place to water seal. Upon my evaluat ion, the patient states that she is much more comfortable than she was yesterday evening. Her pain h as been controlled throughout the day. She denies any difficulty breathing. OBJECTIVE: VITAL SIGNS: Reviewed and stable. GENERAL: The patient is resting in bed in no acute distress. Breathing is nonlabored. Chest tube t o water seal. ASSESSMENT AND PLAN: As documented in daily progress note. Continue care as ordered. Continue to m onitor. A.m. chest x-ray.
--- NOTE | 2017-11-26 00:46 | EKG ---
Test Reason : STAT Blood Pressure : / mmHG Vent. Rate : 158 BPM Atrial Rate : 258 BPM P-R Int : 000 ms QRS Dur : 094 ms QT Int : 278 ms P-R-T Axes : 000 082 -88 degrees QTc Int : 450 ms Atrial fibrillation with rapid ventricular response Abnormal ECG No previous ECGs available Confirmed by DR. Keely GARCIA MD ([id number]) on 11/26/2017 12:45:53 AM Referred By: Confirmed By:DR. Keely GARCIA MD
[2017-11-26] MEDS: Piperacillin/Tazobactam 3.375 GM in Sodium Chloride 0.9% 100 ML IVPB SCH ×4 (01:44→21:35)
[2017-11-26] MEDS: HYDROcodone/Acetaminophen 10/325 mg Tablet PO PRN ×4 (02:08→19:34)
[2017-11-26] MEDS: Ketorolac Tromethamine 30 MG/ML VIAL IVP SCH ×4 (05:49→21:36)
--- NOTE | 2017-11-26 07:42 | RAD ---
CHEST 1 VIEW: HISTORY: Followup chest tube. COMPARISON: Chest 1 view prior day. FINDINGS: Right apical pneumothorax is slightly increased in size, although it feels small. Multiple right-max e rib fractures. Left upper lobe opacity is similar. Thoracostomy tube is similar. IMPRESSION: Slight size increase of the small right apical pneumothorax. POS: [facility]
[2017-11-26] MEDS: guaiFENesin ER 600 MG TAB PO SCH ×2 (10:05→21:37)
[2017-11-26] MEDS: buPROPion HCl 100 MG TAB PO SCH ×2 (10:05→22:06)
[2017-11-26] MEDS: Senokot 8.6 MG TAB PO SCH (10:06)
[2017-11-26] MEDS: levETIRAcetam 500 MG TAB PO SCH ×2 (10:06→21:37)
[2017-11-26] MEDS: Metoprolol Tartrate 25 MG TAB PO SCH ×2 (10:06→21:38)
[2017-11-26] MEDS: metFORMIN XR 500 MG TAB PO SCH ×2 (10:06→16:56)
[2017-11-26] MEDS: Sucralfate 1 GM/10 ML UDCUP PO SCH ×4 (10:07→21:58)
[2017-11-26] MEDS: Gabapentin 100 MG CAP PO SCH ×3 (10:07→21:37)
[2017-11-26] MEDS: Dexamethasone 4 MG TAB PO SCH (10:07)
[2017-11-26] MEDS: Docusate 100 MG CAP PO SCH (10:07)
[2017-11-26] MEDS: lamoTRIgine 100 MG TAB PO SCH (10:08)
[2017-11-26] MEDS: Polyethylene Glycol 3350 17 GM Packet PO SCH (10:08)
[2017-11-26] MEDS: Enoxaparin Sodium 40 MG/0.4 ML SYRINGE SC SCH (10:08)
[2017-11-26] MEDS: Insulin Detemir 100 UNITS/ML 25 UNITS in Pre-Filled Syringe 1 EACH SC SCH (10:19)
[2017-11-26] MEDS: HumaLOG 300 UNITS/3 ML VIAL SC PRN ×2 (17:11→21:51)
--- NOTE | 2017-11-26 17:43 | PRG ---
DATE OF SERVICE: 11/26/2017 SUBJECTIVE: The patient is status post ground level fall which sustained several right-sided rib fra ctures and right pneumothorax. The patient had a chest tube placed initially at an outside facility which was able to be discontinued. Followup x-ray showed reaccumulation of the right pneumothorax. Yesterday, the patient was placed to [facility]. This morning showed that the pneumothorax had reaccu mulated, still a small size but noticeably change in size. The patient will be placed back to [facility]. We will repeat her chest x-ray in the morning. Otherwise, the patient has no complaints. She is tolerating her diet. Her pain is controlled. She has been working with physical and occupational t [employer]. OBJECTIVE: VITAL SIGNS: Temperature is 98.2, heart rate 87, blood pressure 108/70, respirations 20, oxygen satu ration is 95% on 2 liters via nasal cannula. HEENT: Unremarkable. CHEST: The patient has diffuse scattered rhonchi consistent with her COPD and lung CA. The patient has decreased wheezing noted this morning, otherwise her respiratory exam is unchanged. HEART: Regular rate and rhythm. ABDOMEN: Soft, flat, and nontender with active bowel sounds. EXTREMITIES: Neurovascularly intact x4. Chest tube site is clean, dry, and intact. There is no air leak noted in the chamber. LABORATORY DATA: This morning, none. Chest radiograph this morning shows a slight increase in size of the right apical pneumothorax. ASSESSMENT AND PLAN: 1. Status post ground level fall. 2. Multiple right-sided rib fractures. 3. Right pneumothorax necessitating a right chest tube x2. PLAN: Will be to continue supportive care. Again, the chest tube will be placed back to suction. W e will repeat a chest x-ray in the morning. Evaluation examination was done with Dr. Cheema during ro unds this morning.
[2017-11-26] MEDS: Cyclobenzaprine 10 MG TAB PO PRN (21:36)
[2017-11-26] MEDS: Atorvastatin Calcium 40 MG TAB PO SCH (21:36)
--- NOTE | 2017-11-26 21:41 | PRG ---
DATE OF SERVICE: 11/26/2017 SUBJECTIVE: This is a 57-year-old female status post fall with rib fractures and pneumothorax that r equired replacement of the chest tube after reaccumulation of her pneumothorax. Patient's chest tube was placed back to suction earlier today. After her chest x-ray demonstrated increasing size of pne umothorax. Otherwise, the patient's pain has been controlled via p.o. analgesics. She is working on incentive spirometry and pulmonary toileting. She vocalized no complaints this evening. OBJECTIVE: VITAL SIGNS: Reviewed and stable. GENERAL: Patient is afebrile, resting in bed, in no acute distress. Breathing is nonlabored. Chest tubes to suction. ASSESSMENT AND PLAN: This document daily progress note. PLAN: Continue care as ordered. Continue to monitor. A.m. chest x-ray.
[2017-11-26] MEDS: Insulin Detemir 100 UNITS/ML 15 UNITS in Pre-Filled Syringe 1 EACH SC SCH (21:52)
[2017-11-27] MEDS: HYDROcodone/Acetaminophen 10/325 mg Tablet PO PRN ×4 (02:30→18:48)
[2017-11-27] MEDS: Piperacillin/Tazobactam 3.375 GM in Sodium Chloride 0.9% 100 ML IVPB SCH ×2 (02:31→08:30)
[2017-11-27] MEDS: traMADol HCl 50 MG TAB PO SCH ×4 (05:55→17:23)
[2017-11-27] MEDS: Ketorolac Tromethamine 30 MG/ML VIAL IVP SCH ×3 (05:55→16:29)
--- NOTE | 2017-11-27 08:02 | RAD ---
CHEST 1 VIEW: HISTORY: Chest pain. Followup. COMPARISON: 11/26/17. FINDINGS: Cardiac silhouette is magnified and predominantly obscured by consolidation of the left upper lobe. There is leftward shift of the mediastinum. Pulmonary vasculature remains engorged. Right thoracost leana tube remains in place. Right apical pneumothorax is slightly smaller than on the previous study. Right rib fractures are again demonstrated. IMPRESSION: Decreased size of right pneumothorax. Otherwise, stable posttraumatic appearance of the chest. POS: [facility]
[2017-11-27] MEDS: Sucralfate 1 GM/10 ML UDCUP PO SCH ×4 (08:23→21:56)
[2017-11-27] MEDS: metFORMIN XR 500 MG TAB PO SCH ×2 (08:25→17:23)
[2017-11-27] MEDS: levETIRAcetam 500 MG TAB PO SCH ×2 (08:27→21:23)
[2017-11-27] MEDS: guaiFENesin ER 600 MG TAB PO SCH ×2 (08:28→21:24)
[2017-11-27] MEDS: Polyethylene Glycol 3350 17 GM Packet PO SCH (08:28)
[2017-11-27] MEDS: Senokot 8.6 MG TAB PO SCH (08:28)
[2017-11-27] MEDS: Dexamethasone 4 MG TAB PO SCH (08:29)
[2017-11-27] MEDS: Gabapentin 100 MG CAP PO SCH ×3 (08:29→21:23)
[2017-11-27] MEDS: Docusate 100 MG CAP PO SCH (08:29)
[2017-11-27] MEDS: Metoprolol Tartrate 25 MG TAB PO SCH ×2 (08:29→21:23)
[2017-11-27] MEDS: Enoxaparin Sodium 40 MG/0.4 ML SYRINGE SC SCH (08:30)
[2017-11-27] MEDS: Insulin Detemir 100 UNITS/ML 25 UNITS in Pre-Filled Syringe 1 EACH SC SCH (08:30)
[2017-11-27] MEDS: buPROPion HCl 100 MG TAB PO SCH ×2 (08:43→21:24)
[2017-11-27] MEDS: lamoTRIgine 100 MG TAB PO SCH (08:43)
[2017-11-27] MEDS: Cyclobenzaprine 10 MG TAB PO PRN ×2 (11:59→21:34)
[2017-11-27] MEDS: HumaLOG 300 UNITS/3 ML VIAL SC PRN ×2 (12:02→17:26)
--- NOTE | 2017-11-27 15:58 | PRG ---
DATE OF SERVICE: 11/27/2017 SUBJECTIVE: Patient is status post ground level fall when she sustained several right-sided rib frac tures and right pneumothorax. The patient currently has a right-sided chest tube that is to suction. Overnight, she has had no issues and states that her pain is controlled. She is tolerating a diet and her bowel function has resumed. OBJECTIVE: VITAL SIGNS: Temperature is 98.0, heart rate 80, blood pressure 110/66, respirations 16 and oxygen s aturation is 97% on 2 liters via nasal cannula. LABORATORY DATA AND IMAGING DATA: There are no labs to review this morning. Chest x-ray reveals dec reased size of the right pneumothorax, otherwise stable. ASSESSMENT AND PLAN: 1. Status post ground level fall. 2. Multiple right-sided rib fractures. 3. Persistent right pneumothorax. Plan will be to repeat the chest x-ray tomorrow and hopefully be able to put the patient back to [facility]. Due to the patient's significant smoking history and history of lung CA and the recurrence of this pneumothorax, we will proceed cautiously with removing the chest tube. This morning, it was di scussed with the patient, the chances of requiring a pleurodesis. The evaluation and examination was done with Dr. Cheema during rounds this morning.
[2017-11-27] MEDS ORDERED: Clopidogrel Bisulfate 75 MG TAB ONE (17:20)
[2017-11-27] MEDS ORDERED: Calcium Carbonate 500 MG ChewTAB PO PRN (19:48)
[2017-11-27] MEDS: Amoxicillin/Potassium Clav 875 MG TAB PO SCH (21:23)
[2017-11-27] MEDS: Atorvastatin Calcium 40 MG TAB PO SCH (21:24)
[2017-11-27] MEDS: Insulin Detemir 100 UNITS/ML 15 UNITS in Pre-Filled Syringe 1 EACH SC SCH (21:24)
--- NOTE | 2017-11-27 23:58 | PRG ---
DATE OF SERVICE: 11/27/2017 SUBJECTIVE: This is a 57-year-old female status post fall, multiple rib fractures, and reaccumulatin g pneumothorax. The patient's chest tube has remained on suction throughout the day. She states her pain is controlled. She vocalized no complaint upon my evaluation this evening. OBJECTIVE: Vital signs reviewed and stable. Resting in bed in no acute distress. Breathing is nonla bored. Chest tube is to suction. No focal deficit is noted. ASSESSMENT AND PLAN: As documented daily progress note. Continue care as ordered A.m. chest x-ray.
[2017-11-28] MEDS: HYDROcodone/Acetaminophen 10/325 mg Tablet PO PRN ×4 (01:31→17:23)
[2017-11-28] MEDS: traMADol HCl 50 MG TAB PO SCH ×5 (01:33→22:22)
[2017-11-28] MEDS: Cyclobenzaprine 10 MG TAB PO PRN ×2 (05:41→22:17)
[2017-11-28] MEDS: Sucralfate 1 GM/10 ML UDCUP PO SCH ×4 (08:24→22:23)
[2017-11-28] MEDS: Senokot 8.6 MG TAB PO SCH (08:25)
[2017-11-28] MEDS: Metoprolol Tartrate 25 MG TAB PO SCH ×2 (08:25→22:16)
[2017-11-28] MEDS: guaiFENesin ER 600 MG TAB PO SCH ×2 (08:25→22:16)
[2017-11-28] MEDS: Docusate 100 MG CAP PO SCH (08:26)
[2017-11-28] MEDS: Amoxicillin/Potassium Clav 875 MG TAB PO SCH ×2 (08:26→22:15)
[2017-11-28] MEDS: Gabapentin 100 MG CAP PO SCH ×3 (08:26→22:16)
[2017-11-28] MEDS: levETIRAcetam 500 MG TAB PO SCH ×2 (08:26→22:16)
[2017-11-28] MEDS: lamoTRIgine 100 MG TAB PO SCH (08:26)
[2017-11-28] MEDS: Dexamethasone 1 MG TAB PO SCH (08:26)
[2017-11-28] MEDS: buPROPion HCl 100 MG TAB PO SCH ×2 (08:26→22:16)
[2017-11-28] MEDS: metFORMIN XR 500 MG TAB PO SCH ×2 (08:26→17:23)
--- NOTE | 2017-11-28 08:26 | RAD ---
SINGLE VIE WOF THE CHEST: COMPARISON: 11/27/17. HISTORY: Right pneumothorax status post chest tube placement. FINDINGS: A single view of the chest shows a normal-size cardiomediastinal silhouette. There is persistent opa [place] in the left upper lobe. There is a right-sided chest tube without visualization of the previous ly seen right pneumothorax. There are multiple right rib fractures. IMPRESSION: 1. No evidence of right pneumothorax. 2. Persistent left upper lobe infiltrate. POS: [facility]
[2017-11-28] MEDS: Enoxaparin Sodium 40 MG/0.4 ML SYRINGE SC SCH (08:27)
[2017-11-28] MEDS: Insulin Detemir 100 UNITS/ML 25 UNITS in Pre-Filled Syringe 1 EACH SC SCH (08:27)
[2017-11-28] MEDS: Polyethylene Glycol 3350 17 GM Packet PO SCH (08:27)
--- NOTE | 2017-11-28 21:26 | PRG ---
DATE OF SERVICE: 11/28/2017 SUBJECTIVE: This is a 57-year-old female status post fall with multiple rib fractures and recurrent pneumothorax. The patient's chest tube remains in suction. Upon my evaluation, she vocalized no new complaints OBJECTIVE: VITAL SIGNS: Reviewed and stable. The patient is resting in bed, in no acute distress. RESPIRATORY: Breathing is nonlabored. Chest tube is to suction. ASSESSMENT AND PLAN: As documented in daily progress noted. Continue care as ordered. Continue to monitor and a.m. chest x-ray.
[2017-11-28] MEDS: Atorvastatin Calcium 40 MG TAB PO SCH (22:16)
[2017-11-28] MEDS: Insulin Detemir 100 UNITS/ML 15 UNITS in Pre-Filled Syringe 1 EACH SC SCH (22:17)
[2017-11-29] MEDS: HYDROcodone/Acetaminophen 10/325 mg Tablet PO PRN ×4 (01:04→23:47)
[2017-11-29] MEDS: traMADol HCl 50 MG TAB PO SCH ×4 (04:17→21:53)
[2017-11-29] MEDS: Enoxaparin Sodium 40 MG/0.4 ML SYRINGE SC SCH (08:03)
[2017-11-29] MEDS: Sucralfate 1 GM/10 ML UDCUP PO SCH ×4 (08:03→20:24)
[2017-11-29] MEDS: Polyethylene Glycol 3350 17 GM Packet PO SCH (08:04)
[2017-11-29] MEDS: Insulin Detemir 100 UNITS/ML 25 UNITS in Pre-Filled Syringe 1 EACH SC SCH (08:04)
[2017-11-29] MEDS: Gabapentin 100 MG CAP PO SCH ×3 (08:05→20:23)
[2017-11-29] MEDS: metFORMIN XR 500 MG TAB PO SCH ×2 (08:06→17:35)
[2017-11-29] MEDS: guaiFENesin ER 600 MG TAB PO SCH ×2 (08:06→20:23)
[2017-11-29] MEDS: levETIRAcetam 500 MG TAB PO SCH ×2 (08:06→20:23)
[2017-11-29] MEDS: Senokot 8.6 MG TAB PO SCH (08:07)
[2017-11-29] MEDS: Amoxicillin/Potassium Clav 875 MG TAB PO SCH ×2 (08:07→20:22)
[2017-11-29] MEDS: lamoTRIgine 100 MG TAB PO SCH (08:07)
[2017-11-29] MEDS: buPROPion HCl 100 MG TAB PO SCH ×2 (08:07→20:31)
[2017-11-29] MEDS: Dexamethasone 1 MG TAB PO SCH (08:07)
[2017-11-29] MEDS: Docusate 100 MG CAP PO SCH (08:08)
[2017-11-29] MEDS: Metoprolol Tartrate 25 MG TAB PO SCH ×2 (08:08→20:23)
--- NOTE | 2017-11-29 08:21 | RAD ---
SINGLE VIEW OF THE CHEST: COMPARISON: 11/28/17. HISTORY: Right pneumothorax. FINDINGS: A single view of the chest shows a cardiomediastinal silhouette which is upper limits of normal in si ze. There is a right-sided chest tube. The right-sided pneumothorax has increased in size, and ther e is a small right apical pneumothorax. There is persistent opacity in the left upper lobe. IMPRESSION: 1. Left upper lobe infiltrate. 2. Slight enlargement of small right apical pneumothorax. POS: [facility]
--- NOTE | 2017-11-29 16:21 | PRG ---
DATE OF SERVICE: 11/29/2017 SUBJECTIVE: The patient is status post ground level fall, which she sustained right multiple rib fra ctures and right pneumothorax, which has been recurrent and persistent. The patient had a chest tube replaced 4 days ago. The patient continues to have persistent right pneumothorax with varying sizes , though the patient seems to be tolerating this well. Her oxygen saturations stayed in the 90s with her baseline 2-3 liters of nasal cannula and she was able to ambulate approximately 300 feet while s uction. OBJECTIVE: VITAL SIGNS: Temperature is 97.9, heart rate 92, blood pressure 109/61, respirations 24 and oxygen s aturation 93% on 2 liters via nasal cannula. GENERAL: The patient is resting in bed. She is alert and oriented x3. [place] coma scale is 15. HEENT: Unremarkable. LUNGS: Scattered rhonchi, left greater than right, which is consistent with her baseline. HEART: Regular rate and rhythm. ABDOMEN: Soft, flat and nontender with active bowel sounds. EXTREMITIES: Neurovascularly intact. Right chest tube site is clean, dry and intact. There appears to be no air leak noted in the atrium. Extremities are neurovascularly intact x4. LABORATORY DATA: There are no labs this morning. RADIOGRAPHS: Chest x-ray shows reappearance of her right apical pneumothorax. ASSESSMENT AND PLAN: 1. Status post ground level fall. 2. Right multiple rib fractures. 3. Right recurrent, persistent right pneumothorax. Plan will be to place a chest tube to waterseal. Repeat chest x-ray in the morning and we will discu ss this case with Cardiovascular Surgery, specifically, Dr. Blair, in the event that the patient even tually needs a pleurocentesis. This case was discussed with Dr. Cheema this morning.
--- NOTE | 2017-11-29 17:18 | CON ---
DATE OF CONSULTATION: 11/29/2017 HISTORY OF PRESENT ILLNESS: This is an unfortunate 57-year-old female with a diagnosis of metastatic lung cancer about 3 months ago. She was undergoing either chemo or immunotherapy combined with radi ation to the brain. She stumbled and fell at home fracturing at least 4 ribs posteriorly on the righ t and suffered a pneumothorax. Chest tube was placed on the apex and she was transferred here for fu rther care. Upon removal of the chest tube after several days, she re-developed a pneumothorax and a second tube was placed and this one was at the diaphragmatic level. She has had no significant air leak; however, she has continued to have an occasional area of pneumothorax at the apex. PAST MEDICAL HISTORY: Otherwise includes a diagnosis of diabetes mellitus. She has had previous brittany gical procedures of bladder suspension and cholecystectomy. SOCIAL HISTORY: She is a lifelong smoker. HOME MEDICATIONS: Aspirin, atorvastatin, bupropion, steroids, Keppra, Lasix, glimepiride, Lantus and Novolin insulin, Imdur, metoprolol, Protonix, and Carafate. 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 She has also had some documented atrial fibrillation while her e in the hospital. PHYSICAL EXAMINATION: GENERAL: On examination today, she is an alert, cooperative, pleasant lady with hoarseness. She is in no distress from her chest tube, but does note occasional discomfort related to her rib fractures. NECK: She has no obvious adenopathy and no carotid bruits. LUNGS: Clear to auscultation, although she does have bilateral rhonchi with no wheezes. CARDIAC: Reveals a resting tachycardia and it appears to be regular at this time. ABDOMEN: Soft and nontender with no obvious masses. EXTREMITIES: She has no peripheral edema with palpable femoral pulses bilaterally as well as a right dorsalis pedis and a left posterior tibial pulse. Examination of her chest tubes reveal no fluctuat ion in the fluid level on air seal. There is no air leak. At this time, if her chest x-ray shows no worsening of the pneumothorax, we would go ahead and pull t his tube out. If her lung then drops, we will place a smaller anterior tube that we can connect to H eimlich valve and allow for outpatient management given her terminal prognosis and desire to be at [facility] after almost 10 days in the hospital.
[2017-11-29] MEDS: Cyclobenzaprine 10 MG TAB PO PRN (19:22)
--- NOTE | 2017-11-29 20:04 | PRG ---
DATE OF SERVICE: 11/29/2017 SUBJECTIVE: Apurva Wharton is a 57-year-old female, status post fall with multiple rib fractures and recurrent/persistent pneumothorax. Dr. Blair from Cardiovascular Surgery was consulted earlier today . He plans to potentially replace her chest tube with a small bore tube if it recurs after removal. Upon my evaluation this evening, the patient vocalized no complaint. OBJECTIVE: VITAL SIGNS: Reviewed and stable. GENERAL: Resting in bed, in no acute distress. RESPIRATORY: Breathing is nonlabored. NEUROLOGIC: No focal deficit is noted. ASSESSMENT AND PLAN: As documented in daily progress note. Continue care as ordered. Continue to m onitor. A.m. chest x-ray.
[2017-11-29] MEDS: Atorvastatin Calcium 40 MG TAB PO SCH (20:23)
[2017-11-29] MEDS: Insulin Detemir 100 UNITS/ML 15 UNITS in Pre-Filled Syringe 1 EACH SC SCH (20:31)
[2017-11-30] MEDS: traMADol HCl 50 MG TAB PO SCH ×4 (03:28→21:55)
[2017-11-30] MEDS: HYDROcodone/Acetaminophen 10/325 mg Tablet PO PRN ×3 (06:53→18:01)
[2017-11-30] MEDS: Metoprolol Tartrate 25 MG TAB PO SCH ×2 (09:06→22:52)
[2017-11-30] MEDS: lamoTRIgine 100 MG TAB PO SCH (09:06)
[2017-11-30] MEDS: levETIRAcetam 500 MG TAB PO SCH ×2 (09:06→22:08)
[2017-11-30] MEDS: Amoxicillin/Potassium Clav 875 MG TAB PO SCH ×2 (09:06→21:57)
[2017-11-30] MEDS: Senokot 8.6 MG TAB PO SCH (09:06)
[2017-11-30] MEDS: Dexamethasone 1 MG TAB PO SCH (09:06)
[2017-11-30] MEDS: metFORMIN XR 500 MG TAB PO SCH ×2 (09:06→18:01)
[2017-11-30] MEDS: Gabapentin 100 MG CAP PO SCH ×3 (09:06→22:09)
[2017-11-30] MEDS: buPROPion HCl 100 MG TAB PO SCH ×2 (09:06→22:10)
[2017-11-30] MEDS: Docusate 100 MG CAP PO SCH (09:06)
[2017-11-30] MEDS: guaiFENesin ER 600 MG TAB PO SCH ×2 (09:07→22:08)
[2017-11-30] MEDS: Sucralfate 1 GM/10 ML UDCUP PO SCH ×4 (09:07→22:09)
[2017-11-30] MEDS: Enoxaparin Sodium 40 MG/0.4 ML SYRINGE SC SCH (09:07)
[2017-11-30] MEDS: Polyethylene Glycol 3350 17 GM Packet PO SCH (09:08)
[2017-11-30] MEDS: Cyclobenzaprine 10 MG TAB PO PRN (09:08)
[2017-11-30] MEDS: Insulin Detemir 100 UNITS/ML 25 UNITS in Pre-Filled Syringe 1 EACH SC SCH (09:19)
--- NOTE | 2017-11-30 11:18 | RAD ---
RADIOGRAPH CHEST 1 VIEW: Date: 11/30/17. Time: 9:46 a.m. HISTORY: A 57-year-old female with right pneumothorax. Followup. COMPARISON: 11/29/17, 6:56 a.m. FINDINGS: The small right apical pneumothorax is stable. Again noted are the multiple displaced right posterio r rib fractures. Right basal chest tube remains. Left upper lobe perihilar airspace opacity with ai r bronchogram remains, with associated superior retraction of the left hilum. No pulmonary edema. L ateral costophrenic angles are sharp. There is no interval change overall. IMPRESSION: 1. No interval change. 2. Small right apical pneumothorax. 3. Multiple displaced, traumatic, right posterior rib fractures. 4. Left perihilar upper lobe airspace opacity with air bronchogram and volume loss with superior ret raction. 5. Right basilar chest tube. ALFREDO [] POS: [facility]
[2017-11-30] MEDS: HumaLOG 300 UNITS/3 ML VIAL SC PRN (11:25)
--- NOTE | 2017-11-30 15:05 | PRG ---
DATE OF SERVICE: 11/30/2017 SUBJECTIVE: Patient is status post ground-level fall, where she sustained multiple right-sided rib f ractures and right pneumothorax. The patient initially had a right chest tube placed at another [facility], was subsequently transferred here, which after a few days she was able to have that tube remove d, and the following day it was noted that she had reaccumulated her right pneumothorax and a second tube was placed. Over the past few days, it was noted that, while she did not have an air leak, she continued to have a persistent right apical pneumothorax. After consultation with Dr. Blair, he shelly mmended that we place her yesterday on waterseal, which we did. This morning's chest x-ray revealed a stable right apical pneumothorax and he recommended that we discontinue the chest tube and repeat t he film in the morning which we did. OBJECTIVE: VITAL SIGNS: Temperature 98.3, heart rate 88, blood pressure 116/68, respirations 18, oxygen saturat ion is 94% on 2 liters via nasal cannula. GENERAL: The patient is resting comfortably in bed. She is alert and oriented x3. [place] coma sca le is 15. HEENT: Unremarkable. CHEST: Has scattered rhonchi, which is essentially her baseline. HEART: Regular rate and rhythm. ABDOMEN: Soft, flat, nontender with active bowel sounds. EXTREMITIES: Neurovascularly intact x4. Right-sided chest tube was discontinued without issue. An occlusive dressing was placed over top of it. LABORATORY DATA: There are no labs this morning. Radiographs this morning showed right chest tube i n place. Reappearance of the right apical pneumothorax, otherwise stable. ASSESSMENT AND PLAN: 1. Status post ground-level fall. 2. Right-sided rib fractures. 3. Right recurrent, persistent pneumothorax. Plan will be to discontinue the chest tube. Repeat chest x-ray in the morning. If the pneumothorax remained stable, the patient will most likely be discharged home with close followup. If the patient 's right pneumothorax increases in size, Dr. Blair plans on putting a small bore chest tube with a He imlich valve in and discharging her home with close followup. The evaluation and examination was don e with Dr. Cheema this morning during rounds.
[2017-11-30] MEDS: Insulin Detemir 100 UNITS/ML 15 UNITS in Pre-Filled Syringe 1 EACH SC SCH (21:55)
--- NOTE | 2017-11-30 22:03 | PRG ---
DATE OF SERVICE: 11/30/2017 SUBJECTIVE: This is a 57-year-old female status post fall with multiple rib fractures and recurrent pneumothorax. The patient's chest tube was removed earlier today. Upon my evaluation, the patient s tates that her breathing is stable and she vocalized no complaints. OBJECTIVE: VITAL SIGNS: Reviewed and stable. GENERAL: The patient is resting in bed in no acute distress. Breathing is nonlabored. ASSESSMENT AND PLAN: As documented in daily progress note. Continue care as ordered. Continue to m onitor. An a.m. chest x-ray. Eventual disposition to home tomorrow is anticipated.
[2017-11-30] MEDS: Atorvastatin Calcium 40 MG TAB PO SCH (22:09)
[2017-12-01] MEDS: traMADol HCl 50 MG TAB PO SCH ×4 (03:16→21:58)
[2017-12-01] MEDS: HYDROcodone/Acetaminophen 10/325 mg Tablet PO PRN ×3 (06:41→17:55)
[2017-12-01] MEDS ORDERED: Bisacodyl 10 MG SUPP PR PRN (08:18)
[2017-12-01] MEDS: Senokot 8.6 MG TAB PO SCH (08:41)
[2017-12-01] MEDS: guaiFENesin ER 600 MG TAB PO SCH ×2 (08:42→21:58)
[2017-12-01] MEDS: Docusate 100 MG CAP PO SCH (08:42)
[2017-12-01] MEDS: buPROPion HCl 100 MG TAB PO SCH ×2 (08:42→21:58)
[2017-12-01] MEDS: Amoxicillin/Potassium Clav 875 MG TAB PO SCH ×2 (08:42→21:58)
[2017-12-01] MEDS: Polyethylene Glycol 3350 17 GM Packet PO SCH (08:42)
[2017-12-01] MEDS: Dexamethasone 1 MG TAB PO SCH (08:42)
[2017-12-01] MEDS: Gabapentin 100 MG CAP PO SCH ×3 (08:42→21:58)
[2017-12-01] MEDS: metFORMIN XR 500 MG TAB PO SCH ×2 (08:42→17:55)
[2017-12-01] MEDS: Sucralfate 1 GM/10 ML UDCUP PO SCH ×4 (08:43→21:57)
[2017-12-01] MEDS: Enoxaparin Sodium 40 MG/0.4 ML SYRINGE SC SCH (08:43)
[2017-12-01] MEDS: levETIRAcetam 500 MG TAB PO SCH ×2 (08:43→21:58)
[2017-12-01] MEDS: lamoTRIgine 100 MG TAB PO SCH (08:43)
[2017-12-01] MEDS: Insulin Detemir 100 UNITS/ML 25 UNITS in Pre-Filled Syringe 1 EACH SC SCH (08:43)
--- NOTE | 2017-12-01 08:51 | RAD ---
PORTABLE UPRIGHT FRONTAL CHEST RADIOGRAPH: Date: 12-01-17 Comparison: 11-30-17 History: Re-evaluate right sided pneumothorax. FINDINGS: The right sided chest tube present on the prior exam has been removed. There is a stable small apical pneumothorax on the right. There is dense opacity in the left perihilar region with linear density e xtending superiorly to the left lung apex. Multiple displaced right sided rib fractures are again not ed. Heart and mediastinal contours are stable. IMPRESSION: 1. Stable apical pneumothorax on the right. Interval removal of right sided chest tube. 2. Multiple displaced stable right sided rib fractures. 3. Dense opacity in the left perihilar region with density extending superior to this into the left u pper lobe region. This mass like opacity is suspicious for underlying infectious pneumonitis and/or t umor. Clinical correlation is essential. Recommend CT examination of the chest following treatment to evaluate the left perihilar abnormality, which is suspicious for possible underlying malignancy. Code T POS: [facility]
[2017-12-01 11:25] VITALS: BMI 31.1
--- NOTE | 2017-12-01 16:09 | PRG ---
DATE OF SERVICE: 12/01/2017 SUBJECTIVE: Ms. Wharton is awake and alert today. The chest tube was discontinued yesterday. Repeat chest x-ray today reveals a stable, but small apical right pneumothorax. The patient denies a ny dyspnea, syncope or chest pain. OBJECTIVE: VITAL SIGNS: Today includes blood pressure 112/68, pulse is 97, respiratory rate is 20, temperature is 97.9 degrees Fahrenheit, and oxygen saturation is 96% on 2 liters by nasal cannula oxygen. HEART: Reveals regular rate and rhythm, no murmurs or gallops auscultated. LUNGS: Reveals bibasilar rhonchi. Breathing regular and unlabored. ABDOMEN: Soft, nontender, nondistended. Bowel sounds in all four quadrants appear normoactive. NEUROLOGIC: Reveals no focal deficits present. IMPRESSION: 1. Status post fall with multiple right rib fractures. 2. Residual small right apical pneumothorax post-chest tube removal. PLAN: Increase activity as tolerated. We will repeat the chest x-ray tomorrow. If the pneumothorax is stable or improved, the patient will be discharged. Additional intervention will be considered if any progression with regards to the pneumothorax. Both findings and plan discussed with the patient who indicates understanding of the information give n. I have answered her questions.
[2017-12-01] MEDS: Atorvastatin Calcium 40 MG TAB PO SCH (21:58)
[2017-12-01] MEDS: Insulin Detemir 100 UNITS/ML 15 UNITS in Pre-Filled Syringe 1 EACH SC SCH (21:59)
[2017-12-01] MEDS: Cyclobenzaprine 10 MG TAB PO PRN (22:02)
--- NOTE | 2017-12-01 23:43 | PRG ---
DATE OF SERVICE: 12/01/2017 SUBJECTIVE: This is a 57-year-old female status post fall with recurrent pneumothorax. The patient's chest tube was removed yesterday. At this time her breathing is stable. No other complaints at this time. OBJECTIVE: VITAL SIGNS: Stable and reviewed. GENERAL: The patient is resting in bed, in no acute distress. ASSESSMENT AND PLAN: As documented in the daily progress notes. Continue care as ordered. Continue to monitor. Repeat x-ray in the a.m. If the pneumothorax is stable or improved, the patient will be discharged. Addendum at around 0400 nurse called in regards to patient HR into the 150's EKG Afib c RVR At patient's bedside asymptomatic irregular HR no other complaints. Labs ordered STAT, Transfer to Tele and start Amio drip. Notified Dr. Cheema and agreed with above plan. SHID
[2017-12-02] MEDS: HYDROcodone/Acetaminophen 10/325 mg Tablet PO PRN ×2 (01:44→12:00)
[2017-12-02] MEDS: traMADol HCl 50 MG TAB PO SCH ×4 (04:45→21:01)
[2017-12-02 04:54] LABS: Band 10 % (5-11); Eosinophils 3 % (0-10); Hemoglobin 9.8 g/dL (12.0-16.0); Lymphocytes 1 % (21-51); MDiff Complete? YES; Mean Corpuscular HGB CONC 30.7 g/dL (32.0-36.0); Mean Corpuscular Hemoglobin 27.6 pg (27.0-31.0); Mean Corpuscular Volume 89.7 fl (81.0-99.0); Mean Platelet Volume 5.6 fL (7.4-10.4); Monocytes 4 % (0-10); Neutrophil 82 % (42-75); Platelet Count 569 thou/uL (130-400); RBC Distribution Width 15.3 % (11.5-14.5); Red Blood Cell (RBC) Count 3.56 mill/uL (4.20-5.40); White Blood Cell (WBC) Count 20.2 thou/uL (4.8-10.8)
[2017-12-02 04:56] LABS: Anion Gap 14 mmol/L (10-20); BUN (Urea Nitrogen) 11 mg/dL (9.8-20.1); Calc. Creatinine Clearance 150 mL/min (70-130); Calcium 9.9 mg/dL (7.8-10.44); Carbon Dioxide 26 mmol/L (22-29); Chloride 97 mmol/L (98-107); Estimated GFR-MDRD Greater than 90; Glucose 122 mg/dL (70-105); Magnesium 1.4 mg/dL (1.6-2.6); Phosphorus 2.6 mg/dL (2.3-4.7); Sodium 133 mmol/L (136-145)
[2017-12-02] MEDS ORDERED: Amiodarone HCl 150 MG in Dextrose 5% in Water 100 ML IVPB SCH (05:05)
[2017-12-02] MEDS ORDERED: Amiodarone In Dextrose 200 ML IVPB SCH (05:05)
[2017-12-02] MEDS ORDERED: Magnesium Sulfate 4 GM in Sodium Chloride 0.9% 250 ML 250 ML IVPB SCH (05:15)
[2017-12-02] MEDS ORDERED: Amiodarone HCl 450 MG, Admixture Fee 1 EACH in Dextrose 5% in Water 250 ML IVPB SCH (05:30)
[2017-12-02 06:09] LABS: ALT (SGPT) 15 U/L (8-55); AST (SGOT) 19 U/L (5-34); Albumin 2.8 g/dL (3.5-5.0); Alkaline Phosphatase 341 U/L (40-150); Bilirubin, Direct 0.3 mg/dL (0.1-0.3); Bilirubin, Total 0.3 mg/dL (0.2-1.2); Protein, Total 6.9 g/dL (6.0-8.3)
[2017-12-02] MEDS: buPROPion HCl 100 MG TAB PO SCH ×2 (08:28→20:55)
[2017-12-02] MEDS: metFORMIN XR 500 MG TAB PO SCH ×2 (08:28→17:27)
[2017-12-02] MEDS: Sucralfate 1 GM/10 ML UDCUP PO SCH ×4 (08:28→21:04)
[2017-12-02] MEDS: guaiFENesin ER 600 MG TAB PO SCH ×2 (08:28→20:55)
[2017-12-02] MEDS: lamoTRIgine 100 MG TAB PO SCH (08:28)
[2017-12-02] MEDS: Gabapentin 100 MG CAP PO SCH ×3 (08:28→20:54)
[2017-12-02] MEDS: Docusate 100 MG CAP PO SCH (08:28)
[2017-12-02] MEDS: Enoxaparin Sodium 40 MG/0.4 ML SYRINGE SC SCH (08:28)
[2017-12-02] MEDS: levETIRAcetam 500 MG TAB PO SCH ×2 (08:29→20:54)
[2017-12-02] MEDS: Senokot 8.6 MG TAB PO SCH (08:29)
[2017-12-02] MEDS: Polyethylene Glycol 3350 17 GM Packet PO SCH (08:29)
--- NOTE | 2017-12-02 08:35 | RAD ---
SINGLE VIEW OF THE CHEST: Comparison: 12-01-17 History: Pneumothorax. FINDINGS: Single view of the chest shows an enlarged but stable cardiomediastinal silhouette. There is stable o pacity in the left upper lobe. There are multiple right sided rib fractures with a tiny right apical pneumothorax. This is actually decreased in size compared to the prior exam. IMPRESSION: 1. Tiny right apical pneumothorax. 2. Persistent left upper lobe infiltrate. POS: [facility]
[2017-12-02] MEDS: Insulin Detemir 100 UNITS/ML 25 UNITS in Pre-Filled Syringe 1 EACH SC SCH (10:06)
--- NOTE | 2017-12-02 14:43 | PRG ---
DATE OF SERVICE: 12/02/2017 SUBJECTIVE: Ms. Wharton is awake and alert. She reports no syncope, dyspnea or abdominal pain. She reports adequate pain control with respect to her blunt chest trauma. Overnight, the patient develo ped acute onset paroxysmal atrial fibrillation with rapid ventricular response. She was placed on am iodarone drip. Hypomagnesemia was corrected. The patient has since converted to normal sinus rhythm . OBJECTIVE: VITAL SIGNS: Currently includes blood pressure 102/67, pulse is 104, respiratory rate is 18, tempera ture is 98.8 degrees Fahrenheit, oxygen saturation is 95% on 2 liters by nasal cannula oxygen. HEENT: Reveals pupils equal, round, and reactive to light and accommodation. She has no sclerae ict erus present. No jugular venous distention noted. HEART: Reveals regular rate with mild sinus tachycardia, no murmurs or gallops auscultated. LUNGS: Reveals bibasilar rhonchi. Breathing is otherwise regular and unlabored. ABDOMEN: Soft, nontender, nondistended. Bowel sounds in all four quadrants appear normoactive. EXTREMITIES: Reveals 2+ radial and pedal pulses bilaterally. No ankle edema is present. NEUROLOGIC: Reveals no focal deficits present. PERTINENT LABORATORY FINDINGS: Today includes CBC with 20,200 white blood cells, hemoglobin 9.8, hem atocrit is 31.9, platelet count is 569,000. Metabolic profile: Sodium 133, potassium 4.0, chloride is 97, bicarbonate 26, BUN 11, creatinine 0.54, glucose 122, magnesium 1.4, phosphorus 2.6. X-RAY FINDINGS: I have personally reviewed the followup chest x-ray obtained today, which reveals im proved residual tiny right apical pneumothorax. Also noted is a stable cardiomegaly, no pleural effu sions noted. IMPRESSION: 1. Status post fall with multiple right rib fractures, stable. 2. Resolving small right apical pneumothorax. 3. Acute hypomagnesemia. 4. Acute hypophosphatemia. 5. Resolved acute paroxysmal atrial fibrillation with rapid ventricular response. 6. Lung carcinoma involving the left upper lobe. PLAN: 1. Correct abnormal electrolytes. 2. We will resume low-dose beta denys. 3. Patient will be transferred to general surgical floor where we will continue with physical and oc cupational therapy in anticipation for discharge to extended care facility. Above findings and plan discussed with the patient who indicates understanding of the information giv en. I answered her questions.
[2017-12-02] MEDS: Acetaminophen 500 MG TAB PO SCH ×2 (15:46→20:59)
[2017-12-02] MEDS: Ibuprofen 600 MG TAB PO PRN (20:54)
[2017-12-02] MEDS: Metoprolol Tartrate 25 MG TAB PO SCH (20:54)
[2017-12-02] MEDS: Atorvastatin Calcium 40 MG TAB PO SCH (20:54)
[2017-12-02] MEDS: Insulin Detemir 100 UNITS/ML 15 UNITS in Pre-Filled Syringe 1 EACH SC SCH (21:04)
--- NOTE | 2017-12-03 00:49 | PRG ---
DATE OF SERVICE: 12/02/2017 She is awake and alert. She is a 57-year-old female status post fall, rib fracture, pneumothorax on the right, also have history of cancer. Previously she developed atrial fibrillation with RVR . During the day, she was converted to normal sinus rhythm. OBJECTIVE: Vital signs were stable. Physical exam was unremarkable. ASSESSMENT AND PLAN: As documented in daily progress note, continue care as ordered. Continue to mo nitor. Plan for anticipated discharge tomorrow.
[2017-12-03] MEDS: traMADol HCl 50 MG TAB PO SCH ×2 (03:26→09:30)
[2017-12-03] MEDS: Acetaminophen 500 MG TAB PO SCH ×3 (03:26→14:08)
[2017-12-03] MEDS: Sucralfate 1 GM/10 ML UDCUP PO SCH ×2 (06:39→12:01)
[2017-12-03] MEDS ORDERED: Insulin Detemir 100 UNITS/ML 20 UNITS in Pre-Filled Syringe 1 EACH SC SCH (09:00)
[2017-12-03] MEDS: Docusate 100 MG CAP PO SCH (09:27)
[2017-12-03] MEDS: Polyethylene Glycol 3350 17 GM Packet PO SCH (09:28)
[2017-12-03] MEDS: Enoxaparin Sodium 40 MG/0.4 ML SYRINGE SC SCH (09:28)
[2017-12-03] MEDS: Senokot 8.6 MG TAB PO SCH (09:28)
[2017-12-03] MEDS: Metoprolol Tartrate 25 MG TAB PO SCH (09:29)
[2017-12-03] MEDS: levETIRAcetam 500 MG TAB PO SCH (09:29)
[2017-12-03] MEDS: buPROPion HCl 100 MG TAB PO SCH (09:29)
[2017-12-03] MEDS: guaiFENesin ER 600 MG TAB PO SCH (09:29)
[2017-12-03] MEDS: lamoTRIgine 100 MG TAB PO SCH (09:29)
[2017-12-03] MEDS: metFORMIN XR 500 MG TAB PO SCH (09:29)
[2017-12-03] MEDS: Gabapentin 100 MG CAP PO SCH ×2 (09:29→14:08)
--- NOTE | 2017-12-03 10:00 | RAD ---
RADIOGRAPH CHEST 1 VIEW: Date: 12/03/17. Time: 8:23 a.m. HISTORY: A 57-year-old female followup pneumothorax. COMPARISON: 12/02/17 at 5:53 a.m. FINDINGS: The tiny right apical pneumothorax is again noted. It probably has not significantly changed in size , approximately 5% volume of right hemithorax. No major interval change overall. IMPRESSION: 1. Stable tiny right apical pneumothorax. 2. Multiple acute, traumatic, displaced right rib fractures. 3. Left upper lobe airspace opacity with air bronchogram with associated volume loss. 4. No interval change overall. ALFREDO [] POS: UYEN
[2017-12-03] MEDS: HumaLOG 300 UNITS/3 ML VIAL SC PRN (12:01)
[2017-12-03] MEDS: Cyclobenzaprine 10 MG TAB PO PRN (12:03)
[2017-12-03] MEDS: Ibuprofen 600 MG TAB PO PRN (12:03)
[2017-12-03 12:19] VITALS: TEMP 98.3
[2017-12-03 15:57] VITALS: BP 90/63
[2017-12-03] MEDS ORDERED: Aspirin 81 mg Enteric Coated Tablet PO SCH (21:00)
[2017-12-03] MEDS ORDERED: Insulin Detemir 100 UNITS/ML 10 UNITS in Pre-Filled Syringe 1 EACH SC SCH (21:00)
--- NOTE | 2017-12-04 00:17 | EKG ---
Test Reason : Blood Pressure : / mmHG Vent. Rate : 155 BPM Atrial Rate : 300 BPM P-R Int : 000 ms QRS Dur : 082 ms QT Int : 282 ms P-R-T Axes : 000 086 192 degrees QTc Int : 453 ms Atrial tachycatdia Marked ST abnormality, possible lateral subendocardial injury Abnormal ECG When compared with ECG of 23-NOV-2017 21:29, T wave inversion less evident in Inferior leads T wave inversion now evident in Lateral leads Confirmed by Radha MONTES DE OCA ([id number]) on 12/04/2017 12:17:08 AM Referred By: Confirmed By:Radha MONTES DE OCA
--- NOTE | 2017-12-04 02:22 | DIS ---
DATE OF ADMISSION: 11/20/2017. DATE OF DISCHARGE: 12/03/2017. ADMITTING PHYSICIAN: Kelvin Sibley MD DISCHARGING PHYSICIAN: Eddie Cheema DO CONSULTING PHYSICIAN: Ronnell Blair MD REASON FOR HOSPITALIZATION: Ground level fall with right-sided chest wall pain. HOSPITAL DIAGNOSES: 1. Status post fall. 2. Multiple rib fractures, 3 through 8 on the right. 3. Right-sided pneumothorax. PROCEDURES: 1. 11/20/2017, right chest tube thoracostomy, removed on 11/23/2017. 2. 11/24/2017, right chest tube thoracostomy, removed on 11/30/2017. DISCHARGE CONDITION: Stable. DISCHARGE DISPOSITION: Discharged to home with home healthcare therapy. BRIEF HISTORY OF HOSPITALIZATION: Ms. Wharton is a 57-year-old female with a past diagnosis of metastatic lung cancer. She was currently undergoing treatment for cancer with radiation of the brain. She had a ground level fall at home and was taken to an outside hospital, where multiple right side rib fractures and a right side and a pneumothorax were identified. A right chest tube thoracostomy was placed and she was transferred to [facility] for a higher level of care. She was admitted to the CCU for close observation. On hospital day #3, the chest tube was removed. Follow up x-ray identified a recurrent pneumothorax and a second chest tube was placed. She continued to have an occasional area of pneumothorax at the apex. Cardiothoracic Surgery was consulted and second right chest tube was discontinued. She did not have re- accumulation of significant pneumothorax. During hospitalization, she developed paroxysmal atrial fibrillation with rapid ventricular response and she was placed on amiodarone drip and transferred to telemetry. Electrolytes were corrected and the patient converted to normal sinus rhythm. She had no further cardiac arrhythmias noted. Of note, when the patient was admitted, she was previously taking 50 mg of metoprolol extended release daily. This was decreased to 12.5 mg b.i.d. of metoprolol, which the patient tolerated well. On hospital day #13, the patient was discharged to home with her daughter. She will receive home healthcare services with physical therapy. She is to follow up with her primary care physician who will manage her chronic medical conditions. She will need a followup x-ray in 2 weeks. She may either follow up with her PCP or she may follow up with Trauma Services. The patient was seen and examined with Dr. Cheema, who agrees with assessment and plan for discharge. MTDD
== END 2017-12-03 15:10 | disposition home or self-care (01) | DRG 200 ==
LOC: ERS 21:46 → CCU 23:57 → SURG B 11-21 14:46 → 2NO 11-23 22:47 → SURG B 11-24 11:23 → 2NO 12-02 05:11 → SURG A 12-02 17:45
PROVIDERS: ADMIT Surgery; ATTEND Surgery
PROC: 0W9930Z Drainage of Right Pleural Cavity with Drainage Device, Percutaneous Approach (ICD-10-PCS; principal; 2017-11-24)
DX: S27.0XXA Traumatic pneumothorax, initial encounter (principal); S22.41XA Multiple fractures of ribs, right side, initial encounter for closed fracture; C79.31 Secondary malignant neoplasm of brain; E83.39 Other disorders of phosphorus metabolism; E83.42 Hypomagnesemia; C34.90 Malignant neoplasm of unspecified part of unspecified bronchus or lung; I48.0 Paroxysmal atrial fibrillation; I10 Essential (primary) hypertension; W18.30XA Fall on same level, unspecified, initial encounter; Y92.019 Unspecified place in single-family (private) house as the place of occurrence of the external cause; I25.2 Old myocardial infarction; Z79.82 Long term (current) use of aspirin; Z79.4 Long term (current) use of insulin; J44.9 Chronic obstructive pulmonary disease, unspecified
CPT/HCPCS: 36415; 36416; 71045; 80048; 80076; 83735; 84100; 84443; 85025; 90471; 90682; 93005; 93010; 94640; 94760; 96374; 96375; 99292; A4216; G0008; G0390; G8978-GP-CK; G8978-GP-CM; G8979-GP-CJ; G8979-GP-CK; G8987-GO-CL; G8987-GO-CM; G8988-GO-CK; J0282; J1650; J1815; J1885; J2001; J2270; J2405; J2543; J3475; J3480; J7050; J7070; J7620; J8540; Q2036